=== PATIENT | female | born 2000 | race American Indian/Alaskan Native ===

== ENCOUNTER 2019-09-05 19:39 | Emergency (ER) | payer SELFPAY ==
[2019-09-05] MEDS ORDERED: KETOROLAC 30 MG/1 ML INJ IV ONE (21:01)
[2019-09-05] MEDS ORDERED: dexAMETHasone 20 MG/5 ML VIAL IV ONE (21:02)
[2019-09-05] MEDS ORDERED: SODIUM CHLORIDE 0.9% 1000 ML 1,000 ML IV ONE (21:05)
[2019-09-05] MEDS ORDERED: ACETAMINOPHEN 325 MG TAB PO ONE (21:05)
[2019-09-05 21:22] LABS: Basophils % (Auto) 0.3 % (0.0-1.8); Eosinophils # (Auto) 0.2 K/mm3 (0.0-0.4); Eosinophils % (Auto) 1.2 % (0.0-4.3); Hemoglobin 11.9 gm/dl (10.1-14.3); Lymphocytes # (Auto) 1.7 K/mm3 (1.2-5.4); Lymphocytes % (Auto) 11.7 % (13.4-35.0); Monocytes # (Auto) 1.3 K/mm3 (0.0-0.8); Monocytes % (Auto) 8.9 % (0.0-7.3)
[2019-09-05 21:33] LABS: Hematocrit 37.4 % (30.3-42.9); Mean Corpuscular HGB Conc 32 % (30-34); Mean Corpuscular Volume 74 fl (79-97); Platelet Count 334 K/mm3 (140-440); Red Blood Count 5.07 M/mm3 (3.65-5.03); Red Cell Distribution Width 13.6 % (13.2-15.2)
[2019-09-05 21:43] LABS: Alanine Aminotransferase 10 units/L (7-56); Albumin 4.3 g/dL (3.9-5); BUN/Creatinine Ratio 8; Blood Urea Nitrogen 6 mg/dL (7-17); Calcium 9.2 mg/dL (8.4-10.2); Hemolysis Index 2
--- NOTE | 2019-09-05 21:58 | Emergency Department Report ---
ED General Adult HPI - General Chief complaint: Dental/Oral Stated complaint: FACIAL SWELLING Source: patient Mode of arrival: Ambulatory Limitations: No Limitations - History of Present Illness Initial comments: Patient is a nulliparous 19-year-old -Swiss female with no past medical history except asthma who presents to the ED with complaint of acute onset persistent painful swollen upper lip and gum pain for the last 2 days. Patient states that the pain initially started mild but in the last 12 hours the swelling and the pain got worse and now extends to the nose and the left cheek. Patient denies fever, chills, nausea, vomiting, diarrhea, dizziness, syncope, sore throat, traumatic injury, headache, chest pain or shortness of breath. MD Complaint: facial swelling and pain; swollen upper gums -: Sudden, days(s) (2) Location: face, mouth Radiation: non-radiation Severity scale (0 -10): 8 Quality: aching, sharp Consistency: constant Improves with: none Worsens with: none Associated Symptoms: denies other symptoms, fever/chills, headaches, loss of appetite. denies: confusion, chest pain, cough, malaise, nausea/vomiting, rash, seizure, shortness of breath, syncope, weakness, other Treatments Prior to Arrival: none - Related Data Previous Rx's Medication Instructions Recorded Last Taken Type Acetaminophen/Codeine [Tylenol 1 tab PO Q6H PRN #10 tab 09/05/19 Unknown Rx /Codeine # 3 tab] Clindamycin [Clindamycin CAP] 300 mg PO Q8HR #60 capsule 09/05/19 Unknown Rx Ibuprofen [Motrin] 600 mg PO Q8H PRN #30 tablet 09/05/19 Unknown Rx Allergies Allergy/AdvReac Type Severity Reaction Status Date / Time No Known Allergies Allergy Verified 09/05/19 19:46 ED Review of Systems ROS: Stated complaint: FACIAL SWELLING Other details as noted in HPI Constitutional: chills, fever, malaise Eyes: denies: eye pain, eye discharge, vision change ENT: dental pain, other (facial swelling). denies: ear pain, throat pain Respiratory: denies: cough, shortness of breath, wheezing Cardiovascular: denies: chest pain, palpitations Endocrine: no symptoms reported Gastrointestinal: denies: abdominal pain, nausea, diarrhea Genitourinary: denies: urgency, dysuria, discharge Musculoskeletal: denies: back pain, joint swelling, arthralgia Skin: denies: rash, lesions Neurological: denies: headache, weakness, paresthesias Psychiatric: denies: anxiety, depression Hematological/Lymphatic: denies: easy bleeding, easy bruising ED Past Medical Hx - Past Medical History Previous Medical History?: Yes Hx Asthma: Yes - Surgical History Past Surgical History?: No - Social History Smoking Status: Never Smoker Substance Use Type: Alcohol - Medications Home Medications: Home Medications Medication Instructions Recorded Confirmed Last Taken Type Acetaminophen/Codeine [Tylenol 1 tab PO Q6H PRN #10 tab 09/05/19 Unknown Rx /Codeine # 3 tab] Clindamycin [Clindamycin CAP] 300 mg PO Q8HR #60 capsule 09/05/19 Unknown Rx Ibuprofen [Motrin] 600 mg PO Q8H PRN #30 tablet 09/05/19 Unknown Rx ED Physical Exam - General Limitations: No Limitations General appearance: alert, in no apparent distress - Head Head exam: Present: atraumatic, normocephalic, normal inspection - Eye Eye exam: Present: normal appearance, PERRL, EOMI Pupils: Present: normal accommodation - ENT ENT exam: Present: mucous membranes moist, TM's normal bilaterally, normal exter nal ear exam, other (Swollen severely tender left maxillary gingiva and left nares) - Neck Neck exam: Present: normal inspection, full ROM. Absent: tenderness, meningismus, lymphadenopathy, thyromegaly - Respiratory Respiratory exam: Present: normal lung sounds bilaterally. Absent: respiratory distress, wheezes, rales, rhonchi, decreased breath sounds - Cardiovascular Cardiovascular Exam: Present: normal rhythm, tachycardia, normal heart sounds. Absent: systolic murmur, diastolic murmur, rubs, gallop - GI/Abdominal GI/Abdominal exam: Present: soft, normal bowel sounds. Absent: tenderness, guarding, rebound, hyperactive bowel sounds, hypoactive bowel sounds, organomegaly - Extremities Exam Extremities exam: Present: normal inspection, full ROM, normal capillary refill - Back Exam Back exam: Present: normal inspection, full ROM. Absent: tenderness, CVA tenderness (R), CVA tenderness (L), muscle spasm, paraspinal tenderness, vertebral tenderness - Neurological Exam Neurological exam: Present: alert, oriented X3, CN II-XII intact, normal gait, reflexes normal - Psychiatric Psychiatric exam: Present: normal affect, normal mood - Skin Skin exam: Present: warm, dry, intact, normal color. Absent: rash ED Course Vital Signs 09/05/19 09/05/19 19:43 22:51 Temperature 99.9 F H 97.9 F Pulse Rate 110 H 95 H Respiratory 16 16 Rate Blood Pressure 145/98 148/89 O2 Sat by Pulse 97 100 Oximetry ED Medical Decision Making - Lab Data Result diagrams: 09/05/19 21:08 09/05/19 21:08 - Radiology Data Radiology results: report reviewed, image reviewed Findings [facility] [address] [place] [address] Cat Scan Report Signed Patient: OLU HUMPHREYS MR#: [id number] : 2000 Acct:[id number] Age/Sex: 19 / F ADM Date: 09/05/19 Loc: ED Attending Dr: Ordering Physician: RA HART Date of Service: 09/05/19 Procedure(s): CT facial bones w con Accession Number(s): [id number] cc: RA HART CT MAXILLOFACIAL WITHOUT CONTRAST INDICATION / CLINICAL INFORMATION: Facial abscess. TECHNIQUE: All CT scans at this location are performed using CT dose reduction for ALARA by means of automated exposure control. COMPARISON: None available. FINDINGS: FACIAL BONES: No fracture or other significant abnormality. PARANASAL SINUSES: No significant abnormality. ORBITS: No significant abnormality. VISUALIZED INTRACRANIAL STRUCTURES: No significant abnormality. ADDITIONAL FINDINGS: Piercing upper lip with mild subcutaneous induration/edema anterior maxilla characteristic for focal cellulitis. No abscess or drainable fluid collection. IMPRESSION: 1. Mild cellulitis anterior maxillary subcutaneous soft tissues. No abscess or osteomyelitis. Signer Name: Song Hurtado MD Signed: 09/05/2019 10:16 PM Workstation Name: [id number] Transcribed By: TL Dictated By: Song Hurtado MD Electronically Authenticated By: Song Hurtado MD Signed Date/Time: 09/05/192215 DD/ 11 TD/TT: - Medical Decision Making This is a nulliparous 19-year-old -Swiss female with no past medical history except asthma who presents to the ED with complaint of acute onset persistent painful swollen upper lip and gum pain for the last 2 days. Patient states that the pain initially started mild but in the last 12 hours the swelling and the pain got worse and now extends to the nose and the left cheek. In the ED, patient is alert and oriented x3 and is not in distress but appears to be in pain, is tachycardic and slightly febrile in triage. Patient was treated for pain in the ED and also received normal saline 1 L IV bolus x1. Patient also received Decadron injection and clindamycin 900 mg IV x1. Lab test results showed acute leukocytosis of 14,300. The rest of the lab test results are nonactionable. Facial CT scan with contrast showed mild cellulitis anterior maxillary subcutaneous soft tissues. No abscess or osteomyelitis. On reevaluation, patient's pain is well controlled and the vital signs are stable. Patient was discharged home on pain medications and antibiotics and advised to follow-up with her primary care physician in 5 to 7 days for reevaluation or return to the ED immediately if symptoms get worse. - Differential Diagnosis cellulitis; abscess; gingivitis; dental abscess Critical care attestation.: If time is entered above; I have spent that time in minutes in the direct care of this critically ill patient, excluding procedure time. ED Disposition Clinical Impression: Acute gingivitis, Swelling of left side of face, Facial cellulitis Disposition: TO HOME OR SELFCARE Is pt being admited?: No Does the pt Need Aspirin: No Condition: Stable Instructions: Gingivitis (ED), Cellulitis (ED) Additional Instructions: Take medication with food, drink plenty of fluids and follow up with your Primar y Care Physician in 7-10 days for reevaluation. Return to the ED immediately if symptoms get worse. Prescriptions: Clindamycin [Clindamycin CAP] 300 mg PO Q8HR #60 capsule Ibuprofen [Motrin] 600 mg PO Q8H PRN #30 tablet PRN Reason: Pain Acetaminophen/Codeine [Tylenol /Codeine # 3 tab] 1 tab PO Q6H PRN #10 tab PRN Reason: Pain , Severe (7-10) Referrals: PRIMARY CARE, [Primary Care Provider] - 3-5 Days Forms: Work/School Release Form(ED) Time of Disposition: 22:01 Print Language: SOMALI
--- NOTE | 2019-09-05 22:21 | Cat Scan Report ---
CT MAXILLOFACIAL WITHOUT CONTRAST INDICATION / CLINICAL INFORMATION: Facial abscess. TECHNIQUE: All CT scans at this location are performed using CT dose reduction for ALARA by means of automated e xposure control. COMPARISON: None available. FINDINGS: FACIAL BONES: No fracture or other significant abnormality. PARANASAL SINUSES: No significant abnormality. ORBITS: No significant abnormality. VISUALIZED INTRACRANIAL STRUCTURES: No significant abnormality. ADDITIONAL FINDINGS: Piercing upper lip with mild subcutaneous induration/edema anterior maxilla corey acteristic for focal cellulitis. No abscess or drainable fluid collection. IMPRESSION: 1. Mild cellulitis anterior maxillary subcutaneous soft tissues. No abscess or osteomyelitis. Signer Name: Song Hurtado MD Signed: 09/05/2019 10:16 PM Workstation Name: [id number]
[2019-09-05 22:53] VITALS: BP 148/89
== END 2019-09-06 00:06 | disposition home or self-care (01) ==
LOC: ED 19:39
DX: K05.00 Acute gingivitis, plaque induced (principal); L03.211 Cellulitis of face; J45.909 Unspecified asthma, uncomplicated; Z79.899 Other long term (current) drug therapy
CPT/HCPCS: 36415; 70487; 80053; 84703; 85025; 96365; 96375; 99284; J1100; J1885; J7030; Q9967

== ENCOUNTER 2020-03-07 23:00 | Emergency (ER) | payer SELFPAY | END 2020-03-08 04:01 | LOC: ED 23:00 | DX: R10.9 Unspecified abdominal pain (principal); Z53.21 Procedure and treatment not carried out due to patient leaving prior to being seen by health care provider ==

== ENCOUNTER 2021-09-08 08:18 | Emergency (ER) | payer OTHER, BC ==
[2021-09-08 09:52] VITALS: BP 169/106
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
--- NOTE | 2021-09-08 11:27 | XRay Report ---
CERVICAL SPINE 3 VIEWS INDICATION: chest discomfort. Neck pain. COMPARISON: None. IMPRESSION: Normal alignment. No significant discogenic DJD or facet arthropathy. No acute osseous or soft tissue abnormality. Small bilateral C7 cervical ribs are identified measuring up to 1.3 cm. CHEST 2 VIEWS INDICATION: chest discomfort. COMPARISON: none FINDINGS: Support devices: None. Heart: Within normal limits. Lungs/pleura: No acute air space or interstitial disease. No pleural abnormality or pneumothorax. Additional findings: No displaced thoracic fracture is detected on x-ray. IMPRESSION: No acute findings. Signer Name: Dickson Vo Jr, MD Signed: 09/08/2021 11:22 AM Workstation Name: [id number]
== END 2021-09-08 16:46 | disposition home or self-care (01) ==
LOC: ED 08:18
DX: R07.89 Other chest pain (principal); M54.2 Cervicalgia; J45.909 Unspecified asthma, uncomplicated; Z79.899 Other long term (current) drug therapy; V89.2XXA Person injured in unspecified motor-vehicle accident, traffic, initial encounter; Y93.89 Activity, other specified; Y92.488 Other paved roadways as the place of occurrence of the external cause; Y99.8 Other external cause status
CPT/HCPCS: 71046; 72040; 99283